=== PATIENT | male | born 1965 | race African-American/Black ===

== ENCOUNTER 2018-03-03 15:32 | Emergency (ER) | payer BC, OTHER ==
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
== END 2018-03-03 17:24 | disposition home or self-care (01) ==
LOC: MW.ED 15:32
DX: M54.31 Sciatica, right side (principal); E11.9 Type 2 diabetes mellitus without complications; F17.210 Nicotine dependence, cigarettes, uncomplicated; I10 Essential (primary) hypertension
CPT/HCPCS: 99283

== ENCOUNTER 2018-04-10 15:44 | Emergency (ER) | payer BC | END 2018-04-10 16:40 | disposition left against medical advice (07) | LOC: MW.ED 15:44 | DX: Z53.21 Procedure and treatment not carried out due to patient leaving prior to being seen by health care provider (principal) | CPT/HCPCS: 99282 ==